=== PATIENT | male | born 1950 | race Caucasian/White ===

== ENCOUNTER 2017-10-02 09:56 | Day surgery (SDC) | payer MEDICARE, OTHER, SELFPAY ==
[2017-10-02] VITALS (8 sets, daily range): BP systolic 120–138; BP diastolic 73–85; PULSE 61–87; RESP 12–24; TEMP 36.1–36.9; O2SAT 97–98; BMI 30.5
--- NOTE | 2017-10-02 | PATH_ITS ---
[facility] Accession Number: [id number] . 01 Material submitted: . PART A: SMALL BOWEL PART B: GASTRIC PART C: RANDOM COLON . 02 Diagnosis: A. Small Bowel, Biopsy: Duodenal mucosa with no diagnostic abnormality. Negative for active inflammation, features of sprue, dysplasia and malignancy. . B. Stomach, Biopsies: Body-type mucosa with no diagnostic abnormality. No evidence of Helicobacter organisms on H/E stain. Negative for intestinal metaplasia. Negative for dysplasia and malignancy. . C. Random Colon, Biopsies: Colonic mucosa with no diagnostic abnormality. Negative for active, chronic and microscopic colitis. Negative for dysplasia and malignancy. . I10/03/2017 . 02 Electronically signed: . Carmen Kemp MD, Pathologist NPI- [id number] . 01 Gross description: . Received three formalin-filled containers, each labeled with the patient's name: . A. In a container labeled small bowel, the specimen consists of two 0.1-0.2 cm portions of tissue, entirely submitted in cassette A. B. In a container labeled gastric, the specimen consists of a 0.3 cm portion of tissue, entirely submitted in cassette B. C. In a container labeled random colon, the specimen consists of two 0.3-0.4 cm portions of tissue, entirely submitted in cassette C. ([id number]) /FRR . 02 Pathologist provided ICD-10: R10.9 . 02 CPT . 597131, 919632, 404739 Performed at: [address] [facility] [id number], [place], [place] [id number] MD Anthony Pickett MD Phone: [phone] Performed at: [facility] [id number] [place] [id number] MD Saravanan Harper MD Phone: [phone]
[2017-10-02] MEDS: SODIUM CHLORIDE 0.9% 1,000 ML 42 ML IV (10:53)
--- NOTE | 2017-10-02 11:20 | PM.HP.1 ---
History of Present Illness Date Patient Seen: 10/02/17 Time Patient Seen: 11:20 Chief complaint: EGD colonoscopy [id number] Narrative: Dyspepsia and need for colorectal cancer screening Patient History Medical History Neuropathy (Acute) Meds Home Medications Medication Instructions Recorded Confirmed Type gabapentin 600 mg PO DAILY 10/02/17 10/02/17 History ibuprofen 200 mg PO TID-QID PRN 10/02/17 10/02/17 History Allergies Allergy/AdvReac Type Severity Reaction Status Date / Time No Known Drug Allergies Allergy Verified 10/01/17 08:50 Exam Vital Signs (past 8 hours): Oropharynx free of lesion Chest clear to auscultation and percussion Cardiac exam reveals no S3 or murmur- 10/02/17 10:49 Temperature 97.3 F L Pulse Rate 61 Respiratory Rate 16 Blood Pressure 138/76 H Pulse Oximetry 97 Oxygen Delivery Method Room Air Assessment & Plan Plan: Assessment/Plan Narrative: Screening colonoscopy. In addition upper endoscopy will be performed due to dyspepsia.
--- NOTE | 2017-10-02 11:28 | SUR.OPER ---
to endo from opd via cart respirations unlabored iv patent positioned per self for procedure
--- NOTE | 2017-10-02 11:39 | P.OP.ENDO_ITS ---
Operative Date/Time/Diagnoses Date of procedure: 10/02/17 Time of procedure: 11:36 Pre-op diagnosis: Dyspepsia and bloating and need for colorectal cancer screening Post-op diagnosis: same Procedure & Clinicians Study performed: EGD and colonoscopy Same procedure as scheduled: Yes Indications: Same as above. Plus occasional loose stool Surgeon: Herber Koo Procedure Notes Procedure in detail: After informed consent was obtained the patient was placed in the left lateral decubitus position. The video upper scope was placed into the oropharynx with the patient's help swallowed into the esophagus. The esophagus, stomach, and duodenum were carefully examined. On withdrawal retroflex view the GE junction was performed. The scope was removed and the patient tolerated the procedure well. The patient was then turned on the colonoscope substituted. This was placed in the rectum and slowly advanced to the cecum. Preparation was excellent. On slow withdrawal mucosa was carefully examined. The scope was removed patient tolerated procedure well Blood loss none complications none Sedation fentanyl 150 mcg Versed 8 mg IV titration. Total sedation time 26 minutes Findings EGD 1. Completely normal esophagus and 2. Mild erythema and edema in the stomach particularly of the distal stomach where there was striped erythema. No sonia erosions present. Biopsies taken to rule out Helicobacter 3. Normal duodenal bulb and sweep. Biopsies taken to rule out celiac Colonoscopy 1.. He has stand very uncomfortable segment in the sigmoid colon between 30 and 40 cm. After this point patient complained of significant abdominal pain no matter how few loops were present. 2. Otherwise negative colonoscopy to cecum. Biopsies taken randomly to rule out colitis. Patient will follow up by telephone regarding biopsies. He does not need follow -up colonoscopy for 5-10 years. Further recommendations will follow up the results of his biopsies.
--- NOTE | 2017-10-02 11:58 | SUR.OPER ---
tolerated procedure with some cramping
[2017-10-02] MEDS: fentaNYL 250 MCG/5 ML INJ 150 MCG IV (12:00)
[2017-10-02] MEDS: MIDAZOLAM 5 MG/5 ML VIAL 8 MG IV (12:00)
== END 2017-10-02 13:30 | disposition home or self-care (01) ==
PROVIDERS: Visit Provider Internal Medicine Gastroenterology
PROC: 0DJ08ZZ Inspection of Upper Intestinal Tract, Via Natural or Artificial Opening Endoscopic (ICD-10-PCS; CPT 43235; principal; 2017-10-02 11:00)
PROC: 0DJD8ZZ Inspection of Lower Intestinal Tract, Via Natural or Artificial Opening Endoscopic (ICD-10-PCS; CPT 45378; 2017-10-02 11:00)
DX: R14.0 Abdominal distension (gaseous) (principal); R10.13 Epigastric pain; R19.7 Diarrhea, unspecified
CPT/HCPCS: 45380; 43239; 88305; J2250; J3010

== ENCOUNTER → 2018-02-10 09:03 | Outpatient (CLI) | payer MEDICARE, OTHER, SELFPAY ==
--- NOTE | 2018-02-10 | DI.MRI.S_ITS ---
PROCEDURE: MR HIP LT WO CON INDICATIONS: PAIN IN LEFT HIP TECHNIQUE: Noncontrast coronal T1 spin echo and STIR through the bony pelvis. Coronal and axial T2 fast spin echo with fat saturation, sagittal T1 spin echo, and oblique axial T2 fast spin echo with fat saturation through the hip. COMPARISON: [facility], CR, SPINE LUMB 2 OR 3VW, 03/15/2014, 11:31. [facility], CR, SPINE 1 VIEW ANY LEVEL, 04/06/2014, 17:26. FINDINGS: Image quality: Excellent. Bones and joints: Bone marrow of the right pelvic ring and proximal right femur shows normal signal throughout. There is mild edema within the acetabular marrow space and also the superior femoral head marrow space on the left, associated with asymmetric mild to moderate thinning of the left hip joint articular cartilage. No intraosseous lesions or fractures. No avascular necrosis of the femoral heads. The visualized lower lumbar spine appears normally aligned. Tendons and ligaments: The gluteus medius and minimus tendons appear intact, without associated muscle atrophy. The nearby proximal iliotibial band also appears intact. The iliopsoas tendon appears intact, without adjacent bursal fluid collections or evidence for impingement syndrome. The origin of the hamstring tendon is intact at the ischial tuberosity, as well as the associated sacrotuberous ligament. The straight and reflected heads of the rectus femoris muscle origin appear intact, as well as the conjoint tendon. The ligamentum teres appears intact where visualized. Labrum and cartilage: The acetabular labrum on the left appears intact in the absence of intra-articular contrast. Cartilage surface of the left femoral head appears of mildly reduced thickness. The alpha angle of the femur is within normal limits at less than 55 degrees. Soft tissues: Visualized muscles demonstrate normal bulk and internal signal. Quadratus femoris muscle demonstrates no internal edema to suggest ischiofemoral impingement. The proximal sciatic neurovascular bundle appears normal adjacent to the hamstring tendons. No free pelvic fluid. Bladder wall thickness is normal. Genitourinary structures and bowel loops appear normal where visualized. 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 No trauma suspected. No labral injury found. No bursitis identified. No lesion or inflammatory process is present within the pelvis impinging on the lumbosacral plexus. Dictated by: Darrell Liriano M.D. on 02/10/2018 at 10:10 Approved by: Darrell Liriano M.D. on 02/10/2018 at 10:16
== END ==
PROVIDERS: PCP Family Medicine; Visit Provider Family Medicine
DX: M25.552 Pain in left hip (principal); M16.12 Unilateral primary osteoarthritis, left hip
CPT/HCPCS: 73721

== ENCOUNTER → 2018-02-24 16:52 | Outpatient (CLI) | payer MEDICARE, OTHER, SELFPAY ==
--- NOTE | 2018-02-24 16:53 | DI.MRI.S_ITS ---
PROCEDURE: MR SHOULDER RT WO/W CON INDICATIONS: RIGHT SHOULDER PAIN TECHNIQUE: Noncontrast oblique coronal T1 spin echo and T2 fast spin echo with fat saturation, oblique sagittal T1 spin echo and T2 fast spin echo with fat saturation, axial T1 spin echo and T2 fast spin echo with fat saturation through the shoulder. Post-contrast oblique coronal, oblique sagittal, and axial T1 spin echo with fat saturation through the shoulder. COMPARISON: None. FINDINGS: Image quality: Excellent. Rotator cuff: There is full thickness tearing of the mid and posterior supraspinatus tendon at the humeral insertion site. There is high-grade tearing of the anterior infraspinatus tendon at the musculotendinous junction. There is high-grade tearing of the mid to posterior supraspinatus tendon at the humeral insertion site extending to the musculotendinous junction. Teres minor is intact. Subscapularis tendon is intact.. Sagittal images demonsterate moderate supraspinatus and infraspinatus muscle atrophy. Bones and bursae: No suspicious bone marrow enhancement. Moderate gwyn-articular osteophyte formation at the glenohumeral joint. No bone marrow contusions or fractures. There is moderate acromioclavicular joint degeneration. The acromion demonstrates conventional anatomy, without an os acromiale. No pathologic subacromial-subdeltoid or subcoracoid bursal fluid is present. Capsule and soft tissues: No suspicious soft tissue enhancement. There is diffuse degenerative fraying of the glenoid labrum. The long head of the biceps tendon demonstrates normal location and moderate diffuse thinning. The rotator interval appears normal, without fibrosis. The coracohumeral ligament is normal in thickness. IMPRESSION: 1. Acromioclavicular and glenohumeral joint osteoarthritis. 2. Supraspinatus and infraspinatus tendon tearing as described above with associated atrophy. 3. Diffuse degenerative glenoid labral tearing. 4. Moderate diffuse partial thickness tearing of the biceps tendon. Dictated by: Bernard Gaona M.D. on 02/25/2018 at 13:14 Approved by: Bernard Gaona M.D. on 02/25/2018 at 13:21
== END ==
PROVIDERS: PCP Family Medicine; Visit Provider Internal Medicine
DX: M25.511 Pain in right shoulder (principal); M19.011 Primary osteoarthritis, right shoulder; M75.121 Complete rotator cuff tear or rupture of right shoulder, not specified as traumatic; S43.491A Other sprain of right shoulder joint, initial encounter; S46.111A Strain of muscle, fascia and tendon of long head of biceps, right arm, initial encounter
CPT/HCPCS: 73223; A9579